=== PATIENT | female | born 1970 | race Caucasian/White ===

== ENCOUNTER 2025-05-08 07:19 | Day surgery (SDC) | payer OTHER, SELFPAY ==
[2025-04-29 12:03] VITALS: BMI 28.8
[2025-05-08] VITALS (10 sets, daily range): BP systolic 118–152; BP diastolic 68–94; PULSE 65–97; RESP 12–20; TEMP 36.1–36.4; O2SAT 96–100
--- NOTE | 2025-05-08 | DI.RAD.S_ITS ---
PROCEDURE: XR FOOT RT 2V INDICATIONS: ORIF 2ND METATARSAL TECHNIQUE: To views of the foot were acquired. COMPARISON: [facility], CR, XR FOOT RT 2V, 05/08/2025, 9:11. Outside Facility, CR, XR FOOT RT MIN 3V, 04/09/2025, 14:37. FINDINGS: Bones: Status post plate and screw fixation of 2nd metatarsal shaft fracture. Mild residual displacement of the fracture. Soft tissues: No tibiotalar joint effusion. Achilles tendon appears normal. IMPRESSION: Plate screw fixation of 2nd metatarsal shaft fracture. Hardware appears intact. Dictated by: Juan Scott M.D. on 05/08/2025 at 12:18 Approved by: Juan Scott M.D. on 05/08/2025 at 12:19
[2025-05-08] MEDS: LACTATED RINGERS 1,000 ML 42 ML IV (08:00)
--- NOTE | 2025-05-08 08:33 | PM.PREOP ---
Pre-operative Note COVID-19 COVID-19 status: Not tested Interval Note History & Physical reviewed/Exam performed by Physician: Yes Changes to H&P: No
[2025-05-08] MEDS: ACETAMINOPHEN IV 1,000 MG/100 ML VIAL 400 MG IV (09:00)
--- NOTE | 2025-05-08 09:14 | SUR.OPER ---
Supine on padded OR bed, head on pillow, arms secured on padded arm boards at <90 degrees abduction, legs uncrossed, safety belt at torso, tape over blanket over non operative lower leg. Sterile triangle in place per surgeon on operative side. All pressure points padded and protected.
--- NOTE | 2025-05-08 10:40 | P.OP_ITS ---
Operative Date/Time/Diagnoses Date of procedure: 05/08/25 Time of procedure: 09:15 Pre-op diagnosis: right second metatarsal malunion Post-op diagnosis: same Procedure & Clinicians Procedure: ORIF R 2nd MT fracture Same procedure(s) as scheduled: Yes Surgeon: Heather Pena Assisted?: Yes Digital Content Coordinator: Elsy Montoya Anesthesia Type: General Operative Notes Findings: see below Closure Type: primary Specimen(s): none sent Applied: none Estimated Blood Loss (mL): 5 Blood products transfused: none Tourniquet time (min): 72 Procedure in detail: The patient was met in the preoperative hold area. The right 2nd metatarsal was signed as the correct operative site. The patient was taken back to the operating room and placed in supine position. All bony prominence was padded and a well-padded tourniquet was placed to her right lower extremity. A time- out was performed confirming the correct patient correct procedure correct extremity initially in the operative site and administration of IV antibiotics. An Esmarch was used to exsanguinate the right lower extremity the tourniquet was inflated to 250 mm Hg. An incision was made centered over the fracture site. Dissection was taken down to the 2nd metatarsal fracture. The healing callus was removed from the malunion. Fracture site was identified and cleared of all debris. The fracture was reduced. And an 8 hole Pulido and Nephew plate was utilized to fix the fracture in adequate alignment. Six screws were placed. This maintain excellent fixation. Fluoroscopy was utilized to ensure adequate reduction and fixation. The wound was copiously irrigated and was closed with 2-0 Vicryl and 3-0 nylon. A sterile dressing was applied consisted of Xeroform plain gauze sterile Webril and a postop shoe. A total of 10 cc of 0.25% Marcaine was utilized at the end of the case. Complications: none Post-operative Condition: stable Disposition: PACU Plan for aftercare: NWB to RLE for 6 weeks.
--- NOTE | 2025-05-08 10:40 | DI.RAD.S_ITS ---
PROCEDURE: XR FOOT RT 2V INDICATIONS: orif 2ND METATARSAL TECHNIQUE: 2 spot fluoroscopic intraoperative images of the right foot. COMPARISON: Outside Facility, CR, XR FOOT RT MIN 3V, 04/09/2025, 14:37. [facility], CR, XR FOOT RT 2V, 05/08/2025, 10:34. FINDINGS: Intraoperative images demonstrate fixation of a 2nd metatarsal fracture with a dorsal plate and screw construct. IMPRESSION: Status post internal fixation of the previously seen 2nd metatarsal fracture. Approved by: Ron Allen M.D. on 05/08/2025 at 11:14
== END 2025-05-08 11:46 | disposition home or self-care (01) ==
PROVIDERS: Referring Provider Orthopaedic Surgery; Visit Provider Orthopaedic Surgery
PROC: (CPT 28485; principal; 2025-05-08 08:45)
DX: S92.321K Displaced fracture of second metatarsal bone, right foot, subsequent encounter for fracture with nonunion (principal); W55.8 Contact with other mammals
CPT/HCPCS: 28322; 73620; 76000; C1713; J0131; J0689; J1100; J1885; J2250; J2405; J2704; J7120